=== PATIENT | female | born 1930 | race Caucasian/White ===

== ENCOUNTER 2016-04-03 10:35 | Outpatient (CLI) | payer OTHER, BC ==
--- NOTE | 2016-04-03 11:16 | DIAGNOSTIC IMAGING REPORT ---
PROCEDURE: US VENOUS - LEFT EXT INDICATION: EDEMA TECHNIQUE: Duplex sonography of the deep venous system in the left lower extremity was performed. Compression and augmentation techniques were used. COMPARISON: None. FINDINGS: Each interrogated segment of deep vein from the common femoral vein into the calf veins demonstrates normal compressibility, augmentation and/or color Doppler flow without filling defect. No evidence of significant soft-tissue edema, soft-tissue mass or cyst. IMPRESSION: 1. No deep venous thrombosis in the left lower extremity. 2. Results were called to Dr. Mahan's office
== END 2016-04-03 23:00 ==
LOC: US SRH 10:35
DX: R60.9 Edema, unspecified (principal)

== ENCOUNTER 2016-05-12 17:27 | Outpatient (CLI) | payer OTHER, BC ==
--- NOTE | 2016-05-12 17:57 | DIAGNOSTIC IMAGING REPORT ---
PROCEDURE: XR CHEST 2 VIEW INDICATION: COPD,MILD EDEMA,CHF,ATRIAL FIBRILLATION TECHNIQUE: PA and lateral views. COMPARISON: Chest 09/27 and 09/18/2012 FINDINGS: Pacemaker in good position. Lungs are clear. Cardiomegaly with normal pulmonary vasculature. Thorax is normal. IMPRESSION: 1. Cardiomegaly. Lungs clear.
== END 2016-05-12 23:00 ==
LOC: XR SRH 17:27
DX: J44.9 Chronic obstructive pulmonary disease, unspecified (principal); R60.9 Edema, unspecified; I50.9 Heart failure, unspecified; I48.91 Unspecified atrial fibrillation
CPT/HCPCS: 90074; 90100; 95059